=== PATIENT | male | born 1985 | race Caucasian/White ===

== ENCOUNTER 2018-01-01 09:43 | Emergency (ER) | payer OTHER ==
[2018-01-01 11:06] LABS: Hematocrit 44 % (42-52); Mean Corpuscular HGB Conc 34 g/dl (31-36); Mean Corpuscular Hemoglobin 31 pg (27-31); Mean Corpuscular Volume 93 fL (80-94); Mean Platelet Volume 8.7 um3 (7.4-10.4); Platelet Count 244 10^3/ul (150-450); Red Blood Count 4.78 10^6/ul (4.0-5.4); Red Cell Distribution Width 14 % (10.5-15); White Blood Count 7.2 10^3/ul (3.5-10.8)
[2018-01-01 11:26] LABS: EGFR Non-African American 117.8 (>60)
[2018-01-01 12:33] VITALS: BP 148/88
--- NOTE | 2018-01-05 07:48 | ED ---
Earline Luque Gabriel, scribed for Jadon Holly MD on 01/01/18 at 1156 . Skin Complaint - HPI Summary HPI Summary: This patient is a 32 year old M presenting to [facility] accompanied by his mother with a chief complaint of skin pain when he enter the sun. Pt states when he walked outside this morning into the sunlight he experienced general skin burning after only a few seconds of exposure. 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 The patient rates the pain 4/10 in severity. Symptoms aggravated by sunlight. Patient reports constipation. Patient denies vomiting, diarrhea, ABD cramping, and SOB. Pt states he had a severe headache yesterday and had CP w/ palpitations last week. - History of Current Complaint Chief Complaint: EDRashSkinAbscess Time Seen by Provider: 01/01/18 10:44 Stated Complaint: BURNING SENSATION Hx Obtained From: Patient Onset/Duration: Started Hours Ago, Still Present Skin Exposure Onset/Duration: Minutes Ago Timing: Constant Onset Severity: Mild Current Severity: Mild Pain Intensity: 4 Pain Scale Used: 0-10 Numeric Skin Location: Diffuse Character: Pain Associated Signs & Symptoms: Negative - n/v/d - Additional Pertinent History Primary Care Physician: [id number] - Allergy/Home Medications Allergies/Adverse Reactions: Allergies Allergy/AdvReac Type Severity Reaction Status Date / Time chlorine Allergy Itching Uncoded 01/01/18 10:50 PMH/Surg Hx/FS Hx/Imm Hx Endocrine/Hematology History: Denies: Hx Anemia, Hx Unexplained Bleeding, Autoimmune Disease Cardiovascular History: Denies: Hx Congenital Heart Disease, Hx Hypercholesterolemia, Hx Pacemaker/ ICD Respiratory History: Denies: Hx Chronic Bronchitis, Hx Cystic Fibrosis GI History: Denies: Hx Gastroesophageal Reflux Disease, Hx Gastrointestinal Bleed Musculoskeletal History: Denies: Hx Congenital Bone Abnormalities Neurological History: Denies: Hx Migraine Psychiatric History: Reports: Hx Inpatient Treatment, Hx Community Mental Health Tx Denies: Hx Eating Disorder, Hx of Violent Episodes Against Others - Immunization History Immunizations Up to Date: Yes Infectious Disease History: No Infectious Disease History: Denies: Traveled Outside the [place] in Last 30 Days - Family History Known Family History: Negative: Respiratory Disease, Seizure Disorder - Social History Occupation: Employed Full-time Lives: With Family Alcohol Use: Rare Substance Use Type: Reports: Marijuana, Other Substance 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 Negative: Abdominal Pain, Vomiting, Nausea Negative: dysuria, hematuria Negative: Myalgia, Edema Positive: Other - see HPI . Negative: Rash Neurological: Negative - dizziness Positive: Headache - resolved All Other Systems Reviewed And Are Negative: Yes Physical Exam - Summary Physical Exam Summary: Constitutional: Well-developed, Well-nourished, Alert. (-) Distressed Skin: Warm, Dry HENT: Normocephalic; Atraumatic Eyes: Conjunctiva normal Neck: Musculoskeletal ROM normal neck. (-) JVD, (-) Stridor, (-) Tracheal deviation Cardio: Rhythm regular, rate normal, Heart sounds normal; Intact distal pulses; The pedal pulses are 2+ and symmetric. Radial pulses are 2+ and symmetric. (-) Murmur Pulmonary/Chest wall: Effort normal. (-) Respiratory distress, (-) Wheezes, (-) Rales Abd: Soft, (-) Tenderness, (-) Distension, (-) Guarding, (-) Rebound Musculoskeletal: (-) Edema Lymph: (-) Cervical adenopathy Neuro: Alert, Oriented x3 Psych: Mood and affect Normal Triage Information Reviewed: Yes Vital Signs On Initial Exam: Initial Vitals Temp Pulse Resp BP Pulse Ox 97.2 F 63 18 128/81 99 01/01/18 09:57 01/01/18 09:57 01/01/18 09:57 01/01/18 09:57 01/01/18 09:57 Vital Signs Reviewed: Yes Diagnostics - Vital Signs Vital Signs Temp Pulse Resp BP Pulse Ox 01/01/18 09:57 97.2 F 63 18 128/81 99 - Laboratory Lab Results: Lab Results 01/01/18 01/01/18 01/01/18 Range/Units 10:54 10:55 10:55 WBC 7.2 (3.5-10.8) 10^3/ul RBC 4.78 (4.0-5.4) 10^6/ul Hgb 15.0 (14.0-18.0) g/dl Hct 44 (42-52) % MCV 93 (80-94) fL MCH 31 (27-31) pg MCHC 34 (31-36) g/dl RDW 14 (10.5-15) % Plt Count 244 (150-450) 10^3/ul MPV 8.7 (7.4-10.4) um3 Sodium 138 L (139-145) mmol/L Potassium 4.4 (3.5-5.0) mmol/L Chloride 107 (101-111) mmol/L Carbon Dioxide 28 (22-32) mmol/L Anion Gap 3 (2-11) mmol/L BUN 11 (6-24) mg/dL Creatinine 0.77 (0.67-1.17) mg/dL Est GFR ( Amer) 151.5 (>60) Est GFR (Non-Af Amer) 117.8 (>60) BUN/Creatinine Ratio 14.3 (8-20) Glucose 99 (70-100) mg/dL Calcium 9.3 (8.6-10.3) mg/dL Magnesium 2.1 (1.9-2.7) mg/dL Iron 113 (50-212) ug/dL Total Bilirubin 0.50 (0.2-1.0) mg/dL AST 14 (13-39) U/L ALT 13 (7-52) U/L Alkaline Phosphatase 64 (34-104) U/L Total Protein 6.4 (6.4-8.9) g/dL Albumin 4.0 (3.2-5.2) g/dL Globulin 2.4 (2-4) g/dL Albumin/Globulin Ratio 1.7 (1-3) Result Diagrams: 01/01/18 10:55 01/01/18 10:55 Lab Statement: Any lab studies that have been ordered have been reviewed, and results considered in the medical decision making process. Course/Dx - Course Assessment/Plan: This patient is a 32 year old M presenting to [facility] accompanied by his mother with a chief complaint of skin pain when he enter the sun. Pt states when he walked outside this morning into the sunlight he experienced general skin burning after only a few seconds of exposure. 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 The patient rates the pain 4/10 in severity. Symptoms aggravated by sunlight. Patient reports constipation. Patient denies vomiting, diarrhea, ABD cramping, and SOB. Pt states he had a severe headache yesterday and had CP w/ palpitations last week. Pt has an appointment with the [facility] at 0930 on 01-06-18 and will follow up there. He was informed that the copper blood test needed to be sent out and the results will be in within 5 days. He will avoid the sun until this time. - Diagnoses Provider Diagnoses: Skin complaints, Environmental exposure Discharge - Sign-Out/Discharge Documenting (check all that apply): Discharge/Admit/Transfer - Discharge Plan Condition: Stable Disposition: HOME Referrals: [facility] [Outside] - 3 Days [facility] [Outside] - 2 Days Additional Instructions: RETURN TO THE ER FOR ANY NEW OR WORSENING SYMPTOMS The documentation as recorded by the Earline vang Gabriel accurately reflects the service I personally performed and the decisions made by me, Jadon Holly MD.
== END 2018-01-01 12:34 | disposition home or self-care (01) ==
LOC: ED 09:43
DX: R21 Rash and other nonspecific skin eruption (principal); X58.XXXA Exposure to other specified factors, initial encounter; Y92.9 Unspecified place or not applicable
CPT/HCPCS: 36415; 80053; 82525; 83540; 83655; 83735; 85027; 99282

== ENCOUNTER 2018-06-03 11:52 | Emergency (ER) | payer OTHER ==
[2018-06-03] MEDS ORDERED: Ketorolac INJ* 60 MG/2 ML VIAL IM ONE (13:06)
--- NOTE | 2018-06-03 13:36 | RAD ---
HISTORY: pain, left hip pain COMPARISONS: None VIEWS: 3 , Frontal view of the pelvis with frontal and frog-leg views of the left hip FINDINGS: BONE DENSITY: Normal. BONES: There is no displaced fracture. JOINTS: There is bilateral acetabular retroversion. There are cam deformities of the femoral necks bilaterally. ALIGNMENT: There is no dislocation. SOFT TISSUES: Unremarkable. OTHER FINDINGS: None. IMPRESSION: NO ACUTE OSSEOUS INJURY. 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
[2018-06-03 14:13] LABS: Urine Appearance Cloudy; Urine Blood Negative (Negative); Urine Color Yellow; Urine Ketones Negative (Negative); Urine Protein Negative (Negative); Urine Specific Gravity 1.015 (1.010-1.030); Urine Urobilinogen Negative (Negative)
--- NOTE | 2018-06-03 14:25 | ED ---
Lower Extremity - HPI Summary HPI Summary: Pt. is a 32 y.o male who presents to the ER for atraumatic left hip pain x 1 day. 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 States his left hip was sore last night and when he woke up today he was in severe pain. Pain starts in back and radiates into hip. Pain does not radiate into leg. Denies leg numbness or weakness. Denies urinary sxs. Denies fever, N/V, abd. pain, testicle pain. No past medical hx. Moving makes sxs worse. Rest makes sxs better. Sxs are mild in severity. - History of Current Complaint Chief Complaint: EDHipPelvisInjury Stated Complaint: HIP PAIN Time Seen by Provider: 06/03/18 13:06 Hx Obtained From: Patient Pain Intensity: 8 - Allergies/Home Medications Allergies/Adverse Reactions: Allergies Allergy/AdvReac Type Severity Reaction Status Date / Time chlorine Allergy Itching Uncoded 06/03/18 12:11 PMH/Surg Hx/FS Hx/Imm Hx Previously Healthy: Yes Endocrine/Hematology History: Denies: Hx Anemia, Hx Unexplained Bleeding Cardiovascular History: Denies: Hx Congenital Heart Disease, Hx Hypercholesterolemia, Hx Pacemaker/ ICD Respiratory History: Denies: Hx Chronic Bronchitis, Hx Cystic Fibrosis GI History: Denies: Hx Gastroesophageal Reflux Disease, Hx Gastrointestinal Bleed Musculoskeletal History: Denies: Hx Congenital Bone Abnormalities Neurological History: Denies: Hx Migraine Psychiatric History: Reports: Hx Inpatient Treatment, Hx Community Mental Health Tx Denies: Hx Eating Disorder, Hx of Violent Episodes Against Others Infectious Disease History: No Infectious Disease History: Denies: Traveled Outside the [place] in Last 30 Days - Family History Known Family History: Negative: Respiratory Disease, Seizure Disorder - Social History Occupation: Employed Full-time Lives: With Family Alcohol Use: Rare Substance Use Type: Reports: None Substance 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 Smoking Status (MU): Heavy Every Day Tobacco Smoker Type: Cigarettes Amount Used/How Often: PPD Have You Smoked in the Last Year: Yes Review of Systems Constitutional: Negative Gastrointestinal: Negative Genitourinary: Negative Positive: Other - left hip pain Skin: Negative Neurological: Negative All Other Systems Reviewed And Are Negative: Yes Physical Exam Triage Information Reviewed: Yes Vital Signs On Initial Exam: Initial Vitals Temp Pulse Resp BP Pulse Ox 97.8 F 84 18 135/88 99 06/03/18 12:08 06/03/18 12:08 06/03/18 12:08 06/03/18 12:08 06/03/18 12:08 Vital Signs Reviewed: Yes Appearance: Positive: Well-Appearing - Pt. sitting in chair in NAD. Skin: Positive: Warm, Dry Head/Face: Positive: Normal Head/Face Inspection Eyes: Positive: Normal, EOMI, GARCIA Neck: Positive: Supple Musculoskeletal: Positive: Normal, Strength/ROM Intact, Other - No CVA tenderness. Pain with rotation of left hip Neurological: Positive: Normal, Sensory/Motor Intact, CN Intact II-III Psychiatric: Positive: Affect/Mood Appropriate Diagnostics - Vital Signs Vital Signs Temp Pulse Resp BP Pulse Ox 06/03/18 12:08 97.8 F 84 18 135/88 99 - Laboratory Lab Results: Lab Results 06/03/18 Range/Units 13:55 Urine Color Yellow Urine Appearance Cloudy Urine pH 7.0 (5-9) Ur Specific [place] 1.015 (1.010-1.030) Urine Protein Negative (Negative) Urine Ketones Negative (Negative) Urine Blood Negative (Negative) Urine Nitrate Negative (Negative) Urine Bilirubin Negative (Negative) Urine Urobilinogen Negative (Negative) Ur Leukocyte Esterase Negative (Negative) Urine Glucose Negative (Negative) Lab Statement: Any lab studies that have been ordered have been reviewed, and results considered in the medical decision making process. Lower Extremity Course/Dx - Course Course Of Treatment: Pt. presenting with left atruamatic hip pain. He does describe pain as starting in back and radiating to groin. No hx of kindey stones. Will check xray and urine. Toradol given for pain. U.A negative for blood or infection. Xray shows possible acetabular impingment without acute findings, per radiology. On re-exam pt.'s pain has improved. Results discussed. Recommend NSAIDS. To f.u with PCP or orthopedics. To return to er if sxs change or worsen. Pt. understands and agrees with plan. - Diagnoses Differential Diagnosis/HQI/PQRI: Positive: Arthritis, Bursitis, Dislocation, Fracture (Closed), Sprain, Strain Provider Diagnoses: Femoral acetabular impingement, Hip pain Discharge - Sign-Out/Discharge Documenting (check all that apply): Patient Departure - Discharge Plan Condition: Good Disposition: HOME Prescriptions: Naproxen [Naproxen 500 mg tab] 500 mg PO BID #20 tablet Patient Education Materials: Hip Pain (ED) Referrals: Guilherme Daniels MD [Medical Doctor] - Hasmukh Tamez MD [Primary Care Provider] - Additional Instructions: Schedule a follow up appointment with orthopedics Naproxen as directed for pain Return to ER if symptoms change or worsen - Billing Disposition and Condition Condition: GOOD Disposition: Home
[2018-06-03 14:40] VITALS: BP 121/74
== END 2018-06-03 14:39 | disposition home or self-care (01) ==
LOC: ED 11:52
DX: M25.852 Other specified joint disorders, left hip (principal); M25.552 Pain in left hip; F17.210 Nicotine dependence, cigarettes, uncomplicated
CPT/HCPCS: 81003; 96372; 99282; J1885